=== PATIENT | male | born 1955 | race Caucasian/White ===

== ENCOUNTER 2021-08-05 05:47 | Day surgery (SDC) | payer MEDICARE, BC ==
[2021-07-31 11:21] LABS: BASOPHILS % (AUTO) 0.5 % (0-1); EOSINOPHILS # (AUTO) 0.1 X10'3 (0-0.9); EOSINOPHILS % (AUTO) 1.8 % (0-6); LYMPHOCYTES # (AUTO) 1.5 X10'3 (1.1-4.8); LYMPHOCYTES % (AUTO) 22.2 % (21-51); MEAN CORPUSCULAR HGB CONC 33.4 g/dL (33.0-36.5); MEAN CORPUSCULAR VOLUME 89.6 FL (78-98); MEAN PLATELET VOLUME 7.4 FL (7.4-10.4); MONOCYTES # (AUTO) 0.8 X10'3 (0-0.9); MONOCYTES % (AUTO) 11.9 % (2-12); NEUTROPHILS # (AUTO) 4.2 X10'3 (1.8-7.7); NEUTROPHILS % (AUTO) 63.6 % (42-75); PRE OP HEMATOCRIT 43.6 % (42.0-52.0); PRE OP HEMOGLOBIN 14.6 g/dL (14.0-17.9); PRE OP PLATELET COUNT 273 X10'3 (140-440); RED BLOOD COUNT 4.87 X10'6 (4.70-6.10); RED CELL DISTRIBUTION WIDTH 13.9 % (11.5-14.5)
[2021-07-31 11:22] LABS: CLARITY,URINE CLEAR (Clear); COLOR,URINE YELLOW (Yellow); GLUCOSE, URINE NEGATIVE (Neg); KETONES,URINE NEGATIVE (Neg); LEUKOCYTE ESTERASE ,URINE NEGATIVE (Neg); NITRITES, URINE NEGATIVE (Neg); OCCULT BLOOD,URINE NEGATIVE (Neg); PROTEIN,URINE NEGATIVE (Neg); UA COLLECTION TYPE CLN CATCH MIDSTREAM; UROBILINOGEN,URINE 0.2 E.U/dL (0.2-1.0)
[2021-07-31 11:33] LABS: ALBUMIN 3.8 G/DL (3.4-5.0); ALBUMIN/GLOBULIN RATIO 1.2 (1.1-1.5); ALKALINE PHOSPHATASE 114 IU/L (46-116); BLOOD UREA NITROGEN 16 MG/DL (7-18); CALCIUM 8.9 MG/DL (8.5-10.1); CHLORIDE 107 MMOL/L (99-107); CREATININE 0.94 MG/DL (0.60-1.10); PRE OP ALT 34 U/L (30-65); PRE OP ANION GAP 11 (8-16); PRE OP AST 15 U/L (10-37); PRE OP BILIRUB, TOTAL 0.7 MG/DL (0.0-1.0); PRE OP GLUCOSE 135 MG/DL (70-104); PRE OP POTASSIUM 3.8 MMOL/L (3.4-5.1); PRE OP SODIUM 143 MMOL/L (135-145); TOTAL CARBON DIOXIDE 24.7 MMOL/L (24-32); TOTAL PROTEIN 7.1 G/DL (6.4-8.2); eGFR 81 ML/MIN
[~2021-08-05] VITALS: Ht 182.9 cm; Wt 122.5 kg
[2021-08-05] VITALS (11 sets, daily range): BP systolic 101–143; BP diastolic 78–114
[~2021-08-05 05:47] MED LIST: ATOR40TA72 PO; FINA5TAB11 PO; FLO0.4C; LOSA100T57 PO; cefazolin/dext.iso 2gm/100ml IV ONE; famotidine 20mg tablet PO ONE; ringers solution, lacted 1,000 ML IV SCH
[2021-08-05] MEDS ORDERED: labetalol 20mg/4ml (5mg/ml) syringe IV PRN (07:20)
[2021-08-05] MEDS ORDERED: hydrALAZINE 20mg/ml inj. IV PRN (07:20)
[2021-08-05] MEDS ORDERED: acetaminophen 1,000mg/100ml IV 100 ML IV PRN (07:20)
[2021-08-05] MEDS ORDERED: ondansetron/PF 4mg/2ml inj IV PRN (07:20)
[2021-08-05] MEDS ORDERED: morphine 4 MG/ML inj SYRINge IV PRN (07:20)
[2021-08-05] MEDS ORDERED: morphine 2 MG/ML inj. syringe IV PRN (07:20)
[2021-08-05] MEDS ORDERED: proCHLORperazine 10 MG/2 ml inj IV PRN (07:20)
[2021-08-05] MEDS ORDERED: meperidine/PF 25mg/ml syringe IV PRN ×3 (07:20)
[2021-08-05] MEDS ORDERED: ringers solution, lacted 1,000 ML IV SCH (07:20)
[2021-08-05] MEDS ORDERED: BUPIVACAINE liposomal/PF 13.3 MG/ML vial IM ONE (09:12)
[2021-08-05] MEDS ORDERED: BUPIVAcaine/PF 2.5mg/ml (0.25%) 10ml vial ONE (09:12)
[2021-08-05] MEDS ORDERED: midazolam 1 mg/ML 2ml injection ONE (09:13)
[2021-08-05] MEDS ORDERED: fentaNYL /PF 50mcg/ml 5ml ampule ONE (09:14)
[2021-08-05] MEDS ORDERED: sevoflurane 250ml liquid IH ONE (09:21)
[2021-08-05] MEDS ORDERED: LIDOcaine 2% (20mg/ml) 5ml vial ONE (09:35)
[2021-08-05] MEDS ORDERED: rocuronium 10mg/ml inj IV ONE (09:35)
[2021-08-05] MEDS ORDERED: propofol inj 20 ML IV ONE ×2 (09:35→10:11)
[2021-08-05] MEDS ORDERED: dexamethasone sod phosphate 4mg/ml inj. ONE (09:35)
[2021-08-05] MEDS ORDERED: ondansetron/PF 4mg/2ml inj ONE (09:35)
[2021-08-05] MEDS ORDERED: 0.9 % SODIUM CHLORIDE 10 ML VIAL ONE (10:10)
[2021-08-05] MEDS ORDERED: ePHEDrine 50MG/ML INJ. ONE (10:11)
[2021-08-05] MEDS ORDERED: bacitracin 15gm ointment TP ONE (10:15)
[2021-08-05] MEDS ORDERED: glycopyrrolate 0.2mg/ml inj ONE (10:28)
[2021-08-05] MEDS ORDERED: neostigmine methylsulfate 1 MG/ML 10ml vial ONE (10:28)
[2021-08-05] MEDS ORDERED: sugammadex 200mg/2ml injection IV ONE (10:33)
--- NOTE | 2021-08-05 10:39 | NUR ---
Received from OR via , accompanied by Anesthesiologist and report given by Anesthesiolgist DR THURMAN. PT PRESENT WITH 20G RIGHT HAND, DRESSING DRY AND INTACT. VSS. Addendum: 08/05/21 at 1047 by Eliane Soto RN, RN Amended: Links added.
[2021-08-05] MEDS ORDERED: ROPIVAcaine 0.5% (5mg/ml) 30ml vial IJ ONE (10:41)
--- NOTE | 2021-08-05 11:59 | NUR ---
PATIENT A&OX4, DENIES PAIN, V/S STABLE, SCD OFF, 20G TO R HAND D/C, I HAVE REVIEWED D/C ORDERS WITH PATIENT AND HIS AND THEY HAVE VERBALIZED UNDERSTANDING. PATIENT D/C HOME WITH ALL BELONGINGS AND GAVE TRANSPORT. Addendum: 08/05/21 at 1210 by Eliane Soto RN, RN Amended: Links added.
== END 2021-08-05 11:59 | disposition home or self-care (01) ==
LOC: PAS 05:47
PROVIDERS: ATTEND Surgery
DX: K43.9 Ventral hernia without obstruction or gangrene (principal); I10 Essential (primary) hypertension; E78.5 Hyperlipidemia, unspecified; G43.909 Migraine, unspecified, not intractable, without status migrainosus; E66.9 Obesity, unspecified; Z68.36 Body mass index [BMI] 36.0-36.9, adult; Z86.010 Personal history of colon polyps; Z98.52 Vasectomy status; Z88.8 Allergy status to other drugs, medicaments and biological substances; Z88.7 Allergy status to serum and vaccine; Z98.890 Other specified postprocedural states; Z79.899 Other long term (current) drug therapy; Z20.822 Contact with and (suspected) exposure to COVID-19; Z98.41 Cataract extraction status, right eye; Z98.42 Cataract extraction status, left eye
CPT/HCPCS: 36415; 49654; 64488; 80053; 81003; 82948; 85025; 93005; C1781; C9290; C9399; J1100; J2001; J2175; J2250; J2405; J2704; J2710; J3010; J3490; J7120; U0003; U0005; Z7506; Z7508; Z7512; A4215; A4314; A4618; A7000; J2795

== ENCOUNTER 2022-06-16 09:03 | Day surgery (SDC) | payer MEDICARE, BC ==
[2022-06-14 15:34] LABS: BASOPHILS % (AUTO) 0.6 % (0-1); EOSINOPHILS # (AUTO) 0.1 X10'3 (0-0.9); EOSINOPHILS % (AUTO) 1.6 % (0-6); LYMPHOCYTES # (AUTO) 1.8 X10'3 (1.1-4.8); LYMPHOCYTES % (AUTO) 24.3 % (21-51); MEAN CORPUSCULAR HEMOGLOBIN 29.1 PG (27.0-31.0); MEAN CORPUSCULAR VOLUME 88.1 FL (78-98); MEAN PLATELET VOLUME 7.3 FL (7.4-10.4); MONOCYTES # (AUTO) 0.9 X10'3 (0-0.9); MONOCYTES % (AUTO) 11.5 % (2-12); NEUTROPHILS # (AUTO) 4.7 X10'3 (1.8-7.7); PRE OP HEMOGLOBIN 14.5 g/dL (14.0-17.9); PRE OP PLATELET COUNT 269 X10'3 (140-440); RED BLOOD COUNT 4.99 X10'6 (4.70-6.10); RED CELL DISTRIBUTION WIDTH 14.2 % (11.5-14.5)
[2022-06-14 15:34] LABS: CLARITY,URINE CLEAR (Clear); COLOR,URINE YELLOW (Yellow); GLUCOSE, URINE NEGATIVE (Neg); KETONES,URINE NEGATIVE (Neg); LEUKOCYTE ESTERASE ,URINE NEGATIVE (Neg); NITRITES, URINE NEGATIVE (Neg); OCCULT BLOOD,URINE NEGATIVE (Neg); PROTEIN,URINE NEGATIVE (Neg); UROBILINOGEN,URINE 0.2 E.U/dL (0.2-1.0)
[2022-06-14 15:40] LABS: UA COLLECTION TYPE CLN CATCH MIDSTREAM
[2022-06-14 15:49] LABS: ALBUMIN 4.1 G/DL (3.4-5.0); ALBUMIN/GLOBULIN RATIO 1.2 (1.1-1.5); ALKALINE PHOSPHATASE 119 IU/L (46-116); BLOOD UREA NITROGEN 18 MG/DL (7-18); BUN/CREATININE RATIO 18.8 (5.4-32.0); CALCIUM 8.8 MG/DL (8.5-10.1); CHLORIDE 106 MMOL/L (99-107); CREATININE 0.96 MG/DL (0.60-1.10); PRE OP ALT 32 U/L (30-65); PRE OP ANION GAP 12 (8-16); PRE OP AST 17 U/L (10-37); PRE OP BILIRUB, TOTAL 0.8 MG/DL (0.0-1.0); PRE OP GLUCOSE 95 MG/DL (70-104); PRE OP POTASSIUM 3.7 MMOL/L (3.4-5.1); PRE OP SODIUM 142 MMOL/L (135-145); TOTAL CARBON DIOXIDE 23.9 MMOL/L (24-32); TOTAL PROTEIN 7.4 G/DL (6.4-8.2); eGFR 78 ML/MIN
[2022-06-16] VITALS (8 sets, daily range): BP systolic 118–130; BP diastolic 69–87
[~2022-06-16] VITALS: Ht 182.9 cm; Wt 117.9 kg
[~2022-06-16 09:03] MED LIST changes: +ceFAZolin inj. 2,000 MG in dextrose 5%-water 100 ML IV ONE; -cefazolin/dext.iso 2gm/100ml IV ONE
[2022-06-16] MEDS ORDERED: midazolam 1 mg/ML 2ml injection ONE (11:18)
[2022-06-16] MEDS ORDERED: fentaNYL/PF 50MCG/1 ML 2ML syringe ONE ×2 (11:18→12:15)
[2022-06-16] MEDS ORDERED: BUPIVACAINE liposomal/PF 13.3 MG/ML vial IM ONE (11:21)
[2022-06-16] MEDS ORDERED: BUPIVAcaine/PF 2.5 mg/ml (0.25%) 30ml vial ONE ×2 (11:21→12:18)
[2022-06-16] MEDS ORDERED: BUPIVAcaine/PF 5 mg/ml 10ml ONE (11:27)
[2022-06-16] MEDS ORDERED: sevoflurane 250ml liquid IH ONE (12:02)
[2022-06-16] MEDS ORDERED: acetaminophen 1000 MG/100ml vial IV ONE (12:02)
[2022-06-16] MEDS ORDERED: ePHEDrine 50MG/ML INJ. ONE (12:02)
[2022-06-16] MEDS ORDERED: rocuronium 10mg/ml inj IV ONE ×2 (12:02→12:26)
[2022-06-16] MEDS ORDERED: dexamethasone sod phosphate 4mg/ml inj. ONE (12:26)
[2022-06-16] MEDS ORDERED: neostigmine methylsulfate 1 MG/ML 10ml vial ONE (12:26)
[2022-06-16] MEDS ORDERED: glycopyrrolate 0.2mg/ml inj ONE (12:26)
[2022-06-16] MEDS ORDERED: ondansetron/PF 4mg/2ml inj ONE (12:26)
[2022-06-16] MEDS ORDERED: LIDOcaine 1%/PF 5ML 10 MG/ML VIAL ONE (12:26)
[2022-06-16] MEDS ORDERED: propofol inj 20 ML IV ONE (12:26)
[2022-06-16] MEDS ORDERED: morphine 2 MG/ML inj. syringe IV PRN (12:35)
[2022-06-16] MEDS ORDERED: ondansetron/PF 4mg/2ml inj IV PRN (12:35)
[2022-06-16] MEDS ORDERED: proCHLORperazine 10 MG/2 ml inj IV PRN (12:35)
[2022-06-16] MEDS ORDERED: ringers solution, lacted 1,000 ML IV SCH (12:35)
[2022-06-16] MEDS ORDERED: meperidine/PF 25mg/ml syringe IV PRN ×3 (12:35)
[2022-06-16] MEDS ORDERED: morphine 4 MG/ML inj SYRINge IV PRN (12:35)
--- NOTE | 2022-06-16 13:54 | NUR ---
Received from OR via [facility] , accompanied by Anesthesiologist DOYLE and report given by Anesthesiolgist. PATIENT WITH 20GPVIN IN RIGHT HAND RUNNING LR AT 100. MEDICATED FOR PAIN UPON ARRIVAL WILL CONTINUE TO ASSESS. PATIENT WITH ABDOMINAL BINDER PRESENT THAT IS CDI. . 10L MASK ON WITH 100% SATURATIONS AND PATIENT VSS. WILL CONTINUE TO ASSESS AND TREAT. Addendum: 06/16/22 at 1411 by Cole Soto RN, RN Amended: Links added.
[2022-06-16] MEDS ORDERED: HYDROcodone/acetaminophen 10/325mg tab PO ONE (14:10)
--- NOTE | 2022-06-16 14:54 | NUR ---
ALL DISCHARGE CRITERIA HAS BEEN MET. VSS, PAIN AT A TOLERABLE LEVEL, VOIDING AND ABLE TO SAFELY AMBULATE AND TRANSFER SELF. IV TAKEN OUT WITHOUT ANY COMPLICATIONS. ALL DISCHARGE INSTRUCTIONS COVERED WITH PATIENT AND ALL QUESTIONS ANSWERED. PATIENT TAKEN OUT VIA WHEELCHAIR TO PERSONAL VEHICLE WHERE FAMILY/FRIEND DROVE PATIENT HOME. DRESSED WITH ASSIST AND TRANSFERED INDEPENDENTLY. Addendum: 06/16/22 at 1523 by Cole Soto RN, RN Amended: Links added.
== END 2022-06-16 14:54 | disposition home or self-care (01) ==
LOC: PAS 09:03
PROVIDERS: ATTEND Surgery
DX: K42.9 Umbilical hernia without obstruction or gangrene (principal); I10 Essential (primary) hypertension; Z79.899 Other long term (current) drug therapy; Z98.890 Other specified postprocedural states; Z98.49 Cataract extraction status, unspecified eye; Z98.52 Vasectomy status
CPT/HCPCS: 36415; 49652; 64488; 80053; 81003; 82948; 85025; 87811; 93005; C1781; C9290; J0131; J0690; J1100; J2175; J2250; J2405; J2704; J2710; J3010; J3490; J7030; J7060; J7120; Z7506; Z7508; Z7512; A4618; A7000